=== PATIENT | female | born 1940 | race Caucasian/White ===

== ENCOUNTER 2016-04-23 09:27 | Emergency (ER) | payer MEDICARE, OTHER ==
--- NOTE | 2016-04-23 09:58 | RAD ---
HISTORY: Chest pain COMPARISONS: May 23, 2015, CT of the chest dated February 15, 2016 VIEWS:1: Single frontal portable view of the chest at 9:45 AM FINDINGS: LINES AND TUBES: None. CARDIOMEDIASTINAL SILHOUETTE: Again noted is an ectatic and tortuous thoracic aorta. This corresponds to the known thoracic aortic aneurysm and dissection described on the previous CT of the chest. This is stable from previous examinations. PLEURA: The costophrenic angles are sharp. No pleural abnormalities are noted. LUNG PARENCHYMA: The lungs are clear. ABDOMEN: The upper abdomen is clear. There is no subphrenic gas. BONES AND SOFT TISSUES: There is advanced osteoarthritis of the shoulders. The patient is status post median sternotomy. IMPRESSION: AGAIN NOTED IS AN ECTATIC AND TORTUOUS THORACIC AORTA CORRESPONDING TO THE KNOWN ANEURYSMAL DILATATION OR DISSECTION FLAP. ACCOUNTING FOR DIFFERENCE IN TECHNIQUE, THIS IS STABLE FROM FEBRUARY 15, 2016
[2016-04-23 10:02] LABS: Hematocrit 32 % (35-47); Hemoglobin 10.6 g/dl (12.0-16.0); Mean Corpuscular HGB Conc 33 g/dl (31-36); Mean Corpuscular Hemoglobin 28 pg (27-31); Mean Corpuscular Volume 86 fL (80-97); Mean Platelet Volume 7 um3 (7.4-10.4); Red Blood Count 3.73 10^6/ul (4.0-5.4); Red Cell Distribution Width 14 % (10.5-15); White Blood Count 3.6 10^3/ul (3.5-10.8)
[2016-04-23 10:21] LABS: Albumin 3.7 g/dL (3.2-5.2); BUN/Creatinine Ratio 36.7 (8-20); Calcium 8.7 mg/dL (8.6-10.3); EGFR African American 91.2 (>60); EGFR Non-African American 70.9 (>60); Globulin 2.3 g/dL (2-4); Magnesium 1.8 mg/dL (1.9-2.7); Potassium 4.4 mmol/L (3.5-5.0); Total Bilirubin 0.4 mg/dL (0.2-1.0)
[2016-04-23 10:23] LABS: Troponin I 0.01 ng/mL (<0.04)
[2016-04-23] MEDS ORDERED: Lidocaine 2% VISCOUS* 15 ML UDC PO ONE (10:29)
[2016-04-23] MEDS ORDERED: Al Hydrox/Mg Hydrox/Simet LIQ* 30 ML UDC PO ONE (10:29)
--- NOTE | 2016-04-23 10:53 | ED ---
Hannah Gamboa Claudia, scribed for Mary Dover MD on 04/23/16 at 1016 . HPI Chest Pain - HPI Summary HPI Summary: 76 year old female presents to the ED with epigastric pain. Pt describes the pain is burning and it feels like extreme heart burn. Pt notes pain started at 600am today. She notes that she has had GERD like this in the past. Pt notes that she took Mylanta this am which somewhat alleviated her pain. She admits to nausea but denies V/D, SOB, skin diaphoresis, vision changes. No radiation of pain. + belching. no blood, black stool. No h/o cardiac dx, CVA Pt does have aortic aneurysm (SHx aneurysm repair 2016) and takes Rx Plavix daily. - History of Current Complaint Chief Complaint: EDChestPainROMI Time Seen by Provider: 04/23/16 09:31 Hx Obtained From: Patient Onset/Duration: Started Hours Ago - 0600am today, Still Present Timing: Constant Initial Severity: Moderate Current Severity: Mild Pain Intensity: 6 Pain Scale Used: 0-10 Numeric Chest Pain Location: Mid Sternal - epigastric Chest Pain Radiates: Yes Chest Pain Radiates To:: Epigastric, Other - esophageous Character: Burning Aggravating Factor(s): Medications - Maalox Alleviating Factor(s): OTC Meds - mylanta Associated Signs and Symptoms: Positive: Chest Pain, Nausea. Negative: Vision Changes, Shortness of Breath, Diaphoresis, Vomiting - Allergy/Home Medications Allergies/Adverse Reactions: Allergies Allergy/AdvReac Type Severity Reaction Status Date / Time Iodinated Contrast Media Allergy Mild Hives Verified 04/23/16 09:39 [CONTRAST DYE] Amiodarone Allergy Unknown Verified 04/23/16 09:39 Reaction Details Darifenacin Allergy Unknown Verified 04/23/16 09:39 [From Enablex 15mg] Reaction Details Penicillins [PCN] Allergy Hives Verified 04/23/16 09:39 Yellow Dye Allergy Unknown Verified 04/23/16 09:39 [From Enablex 15mg] Reaction Details PMH/Surg Hx/FS Hx/Imm Hx Previously Healthy: Yes Endocrine/Hematology History: Reports: Hx Thyroid Disease Denies: Hx Diabetes Cardiovascular History: Reports: Hx Coronary Artery Disease, Hx Hypertension, Other Cardiovascular Problems/Disorders - aortic aneurysm Denies: Hx Myocardial Infarction GI History: Reports: Hx Gastroesophageal Reflux Disease History: Denies: Hx Dialysis, Hx Renal Disease Musculoskeletal History: Reports: Hx Arthritis - shoulders bilaterally, Hx Orthopedic Injury - fx r hip, hip replacement done, Hx Osteoporosis Denies: Hx Rheumatoid Arthritis Sensory History: Reports: Hx Contacts or Glasses - glasses Opthamlomology History: Reports: Hx Contacts or Glasses - glasses Neurological History: Reports: Other Neuro Impairments/Disorders - parkinsons Denies: Hx CVA Psychiatric History: Reports: Hx Eating Disorder - anorexia, Hx Depression - Cancer History Cancer Type, Location and Year: breast Hx Chemotherapy: No Hx Radiation Therapy: No Hx Palliative Cancer Treatment: No - Surgical History Surgery Procedure, Year, and Place: bilateral mastectomy- 1978, 1989. aortic aneurysm repair Hx Anesthesia Reactions: No Infectious Disease History: No Infectious Disease History: Denies: Traveled Outside the [place] in Last 30 Days - Family History Known Family History: Positive: None - reviewed & noncontributory - Social History Occupation: Retired Alcohol Use: None Hx Substance Use: No Substance Use Type: Reports: None Hx Tobacco Use: No Smoking Status (MU): Former Smoker Type: Cigarettes Amount Used/How Often: 1ppd Length of Time of Smoking/Using Tobacco: 3 years from [id number] Have You Smoked in the Last Year: No Review of Systems Constitutional: Negative Negative: Fever, Chills, Skin Diaphoresis Eyes: Negative Negative: Blurred Vision, Diplopia ENT: Negative Positive: Chest Pain - epigastic burning Negative: Shortness Of Breath, Cough Positive: Nausea. Negative: Vomiting, Diarrhea Genitourinary: Negative Musculoskeletal: Negative Skin: Negative Neurological: Negative Negative: Weakness Psychological: Normal All Other Systems Reviewed And Are Negative: Yes Physical Exam Triage Information Reviewed: Yes Vital Signs On Initial Exam: Initial Vitals Temp Pulse Resp BP Pulse Ox 98.9 F 56 12 150/64 99 04/23/16 09:34 04/23/16 09:34 04/23/16 09:34 04/23/16 09:34 04/23/16 09:34 Vital Signs Reviewed: Yes Appearance: Positive: Well-Appearing, No Pain Distress, Well-Nourished Skin: Positive: Warm, Skin Color Reflects Adequate Perfusion, Dry Head/Face: Positive: Normal Head/Face Inspection, Other - Pt with lip movement related to Parkinson's Eyes: Positive: Normal, EOMI, JUDSON ENT: Positive: TMs normal Neck: Positive: Supple, Nontender, No Lymphadenopathy Respiratory/Lung Sounds: Positive: Clear to Auscultation, Breath Sounds Present Cardiovascular: Positive: Normal, RRR. Negative: Murmur Abdomen Description: Positive: Soft. Negative: Nontender - + ttp epigatric area - worse with deep palp. No guarding, no rebound Bowel Sounds: Positive: Present Musculoskeletal: Positive: Normal, Strength/ROM Intact Neurological: Positive: Normal, Sensory/Motor Intact, Alert, Oriented to Person Place, Time Psychiatric: Positive: Normal AVPU Assessment: Alert - [place] Coma Scale Best Eye Response: 4 - Spontaneous Best Motor Response: 6 - Obeys Commands Best Verbal Response: 5 - Oriented Coma Scale Total: 15 Diagnostics - Vital Signs Vital Signs Temp Pulse Resp BP Pulse Ox 04/23/16 09:34 98.9 F 56 12 150/64 99 - Laboratory Lab Results: Lab Results 04/23/16 Range/Units 09:53 WBC 3.6 (3.5-10.8) 10^3/ul RBC 3.73 L (4.0-5.4) 10^6/ul Hgb 10.6 L (12.0-16.0) g/dl Hct 32 L (35-47) % MCV 86 (80-97) fL MCH 28 (27-31) pg MCHC 33 (31-36) g/dl RDW 14 (10.5-15) % Plt Count 149 L (150-450) 10^3/ul MPV 7 L (7.4-10.4) um3 Neut % (Auto) 73.5 (38-83) % Lymph % (Auto) 15.7 L (25-47) % Dickenson % (Auto) 8.8 (1-9) % Eos % (Auto) 0.8 (0-6) % Baso % (Auto) 1.2 (0-2) % Absolute Neuts (auto) 2.7 (1.5-7.7) 10^3/ul Absolute Lymphs (auto) 0.6 L (1.0-4.8) 10^3/ul Absolute Monos (auto) 0.3 (0-0.8) 10^3/ul Absolute Eos (auto) 0 (0-0.6) 10^3/ul Absolute Basos (auto) 0 (0-0.2) 10^3/ul Absolute Nucleated RBC 0 10^3/ul Nucleated RBC % 0 Result Diagrams: 04/23/16 09:53 04/23/16 09:53 Lab Statement: Any lab studies that have been ordered have been reviewed, and results considered in the medical decision making process. - Radiology CXR Xray Interpretation: No Acute Changes - AGAIN NOTED IS AN ECTATIC AND TORTUOUS THORACIS AORTA CORRESPONDING TO THE KNOWN ANEURYSMAL DIALATION OR DISSECTION FLAP. ACOCUDNTING FOR DIFFERNECE IN TECHNIQUE, THIS IS STABLE FROM FEBRUARY 15, 2016. Radiology Interpretation Completed By: Radiologist - EKG 9:33 Cardiac Rate: NL EKG Rhythm: Sinus Rhythm - 55 beats/min EKG Interpretation: RBBB, no acute changes from 05/22/15. Re-Evaluation - Re-Evaluation 1 Re-Evaluation Time: 11:08 Change: Improved - Pt notes Sx are completly resolved and pt is feeling imporved after the GI cocktail. Pt is ready to try some applesauce. 2 Re-Evaluation Time: 11:29 Comment: Pt is updated on the results of the urine anaylsis. Will start marcrobid Pt states feels well, no pain, no complaints Chest Pain Course/Dx - Course Assessment/Plan: Pt presents with epigastric burning - started at 6am, improved with mylanta. Pt reports mild nausea, no vomiting. No h/o CAD. Pt with known AAA. will check EKG, labs, urine, cxr. Will give Gi cocktail, reassess - Diagnoses Provider Diagnoses: UTI (urinary tract infection), Epigastric abdominal pain Discharge - Discharge Plan Condition: Improved Disposition: HOME Prescriptions: Nitrofurantoin Monohyd Macro [Macrobid] 100 mg PO BID #20 cap Referrals: Patricia Harris MD [Primary Care Provider] - Additional Instructions: - stay well hydrated Drink plenty of non-alcoholic,noncaffinated beverages - Take antibiotics (macrobid 100mg 2 times a day for 10 days) for your urinary infection - It is recommend you discuss starting an acid reducing medication with your doctor. Okay to take Maalox of Mylanta for discomfort -contact your doctor to schedule a follow-up appointment. Contact your doctor or return with questions or concerns The documentation as recorded by the Hannah leon Claudia accurately reflects the service I personally performed and the decisions made by me, Mary Dover MD.
[2016-04-23 11:25] LABS: Urine Bacteria 2+ (Absent); Urine Bilirubin Negative (Negative); Urine Glucose Negative (Negative); Urine Nitrite Positive (Negative)
[2016-04-23] MEDS ORDERED: Nitrofurantoin Macrocrystals* 100 MG CAP PO ONE (11:29)
[2016-04-23 12:23] VITALS: BP 143/70
--- NOTE | 2016-04-25 07:58 | ED ---
Progress - Progress Note Progress Note: Patient's urine culture grew E. Coli. She was put on Nitrofurantoin on 04/23/16. Sensitivity came back and bacteria is sensitive to Nitrofurantoin. No medication changes needed at this time unless returns with worsening symptoms. Re-Evaluation - Re-Evaluation 1 Re-Evaluation Time: 11:08 Change: Improved - Pt notes Sx are completly resolved and pt is feeling imporved after the GI cocktail. Pt is ready to try some applesauce. 2 Re-Evaluation Time: 11:29 Comment: Pt is updated on the results of the urine anaylsis. Will start marcrobid Pt states feels well, no pain, no complaints Course/Dx - Diagnoses Provider Diagnoses: UTI (urinary tract infection), Epigastric abdominal pain
== END 2016-04-23 12:33 | disposition home or self-care (01) ==
LOC: ED 09:27
DX: N39.0 Urinary tract infection, site not specified (principal); R10.13 Epigastric pain; R07.9 Chest pain, unspecified; R11.0 Nausea
CPT/HCPCS: 36415; 71010; 80053; 81003; 81015; 82550; 82553; 83690; 83735; 84484; 85025; 87077; 87086; 87186; 93005; 99284; A9270-GY

== ENCOUNTER 2016-06-05 08:09 | Emergency (ER) | payer MEDICARE, OTHER ==
--- NOTE | 2016-06-05 09:13 | RAD ---
INDICATION: History of aortic aneurysm/dissection with repair COMPARISON: Chest x-ray April 23, 2016; CT chest February 15, 2016 TECHNIQUE: PA and lateral dual-energy views were obtained. FINDINGS: Bones/Soft Tissues: There are no acute bony findings. There are postsurgical changes with sternotomy. There is thoracic aortic surgery. There are clips in right axillary region. There is advanced osteoarthritis about both shoulders Cardiomediastinal: The abnormal cardiac silhouette appears unchanged when allowing for rotation on the current examination. There are displaced intimal calcifications with prominence of the arch and descending thoracic aorta consistent with the clinical history. Lungs: There are no infiltrates. Pleura: There are no pleural effusions. Other: None IMPRESSION: NO CHANGE IN THE ABNORMAL APPEARANCE THE CARDIAC SILHOUETTE. POSTSURGICAL CHANGES.
--- NOTE | 2016-06-05 09:33 | ED ---
Shortness of Breath - HPI Summary HPI Summary: Patient presents with SOB and mild nausea that began this AM when she went to the bathroom. She does not relate this to any activity. Nothing makes it better or worse. She has had this feeling in the past, which was related to "having to wait". She has been feeling generally weak without CP, CHAVARRIA, fever, abdominal pain or recent illness. She has a history of not sleeping well and her appetite is intact. - History of Current Complaint Chief Complaint: EDGeneral Time Seen by Provider: 06/05/16 08:24 Hx Obtained From: Patient Onset/Duration: Sudden Onset Current Severity: None Dyspnea At: Rest Aggrevating Factors: Nothing Alleviating Factors: Spontaneous Resolution Associated Signs & Symptoms: Negative - Allergy/Home Medications Allergies/Adverse Reactions: Allergies Allergy/AdvReac Type Severity Reaction Status Date / Time Iodinated Contrast Media Allergy Mild Hives Verified 04/23/16 09:39 [CONTRAST DYE] Amiodarone Allergy Unknown Verified 04/23/16 09:39 Reaction Details Darifenacin Allergy Unknown Verified 04/23/16 09:39 [From Enablex 15mg] Reaction Details Penicillins [PCN] Allergy Hives Verified 04/23/16 09:39 Yellow Dye Allergy Unknown Verified 04/23/16 09:39 [From Enablex 15mg] Reaction Details PMH/Surg Hx/FS Hx/Imm Hx Endocrine/Hematology History: Reports: Hx Thyroid Disease Denies: Hx Diabetes Cardiovascular History: Reports: Hx Coronary Artery Disease, Hx Hypertension, Other Cardiovascular Problems/Disorders - aortic aneurysm Denies: Hx Myocardial Infarction GI History: Reports: Hx Gastroesophageal Reflux Disease History: Denies: Hx Dialysis, Hx Renal Disease Musculoskeletal History: Reports: Hx Arthritis - shoulders bilaterally, Hx Orthopedic Injury - fx r hip, hip replacement done, Hx Osteoporosis Denies: Hx Rheumatoid Arthritis Sensory History: Reports: Hx Contacts or Glasses - glasses Opthamlomology History: Reports: Hx Contacts or Glasses - glasses Neurological History: Reports: Other Neuro Impairments/Disorders - parkinsons Denies: Hx CVA Psychiatric History: Reports: Hx Eating Disorder - anorexia, Hx Depression - Cancer History Cancer Type, Location and Year: breast Hx Chemotherapy: No Hx Radiation Therapy: No Hx Palliative Cancer Treatment: No - Surgical History Surgery Procedure, Year, and Place: bilateral mastectomy- 1978, 1989. aortic aneurysm repair Hx Anesthesia Reactions: No Infectious Disease History: No Infectious Disease History: Denies: Traveled Outside the [place] in Last 30 Days - Family History Known Family History: Positive: None - reviewed & noncontributory - Social History Occupation: Retired Alcohol Use: None Hx Substance Use: No Substance Use Type: Reports: None Hx Tobacco Use: No Smoking Status (MU): Former Smoker Type: Cigarettes Amount Used/How Often: 1ppd Length of Time of Smoking/Using Tobacco: 3 years from [id number] Have You Smoked in the Last Year: No Review of Systems Positive: Fatigue. Negative: Fever, Chills Positive: Shortness Of Breath. Negative: Cough Positive: Nausea. Negative: Abdominal Pain, Vomiting, Diarrhea Positive: no symptoms reported Negative: Headache All Other Systems Reviewed And Are Negative: Yes Physical Exam Triage Information Reviewed: Yes Vital Signs On Initial Exam: Initial Vitals Temp Pulse Resp BP Pulse Ox 98.4 F 58 20 179/81 100 06/05/16 08:17 06/05/16 08:17 06/05/16 08:17 06/05/16 08:17 06/05/16 08:17 Vital Signs Reviewed: Yes Appearance: Positive: Well-Appearing, No Pain Distress, Cachectic Skin: Positive: Warm, Skin Color Reflects Adequate Perfusion, Dry, Soft Head/Face: Positive: Normal Head/Face Inspection Eyes: Positive: EOMI, JUDSON, Conjunctiva Clear ENT: Positive: Hearing grossly normal Neck: Positive: Supple, Nontender, No Lymphadenopathy Respiratory/Lung Sounds: Positive: Clear to Auscultation, Breath Sounds Present Cardiovascular: Positive: Bradycardia Abdomen Description: Positive: Nontender, Soft Bowel Sounds: Positive: Present Musculoskeletal: Negative: Edema Left, Edema Right Neurological: Positive: Sensory/Motor Intact, Alert, Oriented to Person Place, Time, NV Bundle Intact Distally Psychiatric: Positive: Affect/Mood Appropriate AVPU Assessment: Alert - Yue Coma Scale Coma Scale Total: 15 Diagnostics - Vital Signs Vital Signs Temp Pulse Resp BP Pulse Ox 06/05/16 08:17 98.4 F 58 20 179/81 100 - Laboratory Result Diagrams: 06/05/16 09:39 06/05/16 09:39 Lab Statement: Any lab studies that have been ordered have been reviewed, and results considered in the medical decision making process. - Radiology No standard instances Xray Interpretation: No Acute Changes Radiology Interpretation Completed By: Radiologist - EKG No standard instances Cardiac Rate: NL EKG Rhythm: Sinus Rhythm ST Segment: Normal Ectopy: None EKG Comparison: No Significant Change Course/Dx - Course Course Of Treatment: Patient's labwork was negative for acute changes. She is encouraged to drink extra fluids to avoid dehydration and to follow-up with her PCP for evaluation. - Diagnoses Differential Diagnosis/HQI/PQRI: Positive: Airway Obstruction, Bronchitis, CHF, Chest Wall Pain, NH, Pneumonia, Pneumothorax, Pulmonary Embolism Provider Diagnoses: Shortness of breath - Physician Notifications Discussed Care of Patient With: Dr. Moser, ED attending Time Discussed With Above Provider: 20:00 Discharge - Discharge Plan Condition: Stable Disposition: HOME Patient Education Materials: Dehydration (ED), Dyspnea (ED) Referrals: Patricia Harris MD [Primary Care Provider] - Additional Instructions: Please make an effort to drink extra fluids to avoid dehydration. Follow-up with your primary care provider in 2-3 days for re-evaluation.
[2016-06-05 09:52] LABS: Hematocrit 33 % (35-47); Hemoglobin 10.7 g/dl (12.0-16.0); Mean Corpuscular HGB Conc 32 g/dl (31-36); Mean Corpuscular Hemoglobin 28 pg (27-31); Mean Corpuscular Volume 85 fL (80-97); Mean Platelet Volume 7 um3 (7.4-10.4); Red Blood Count 3.86 10^6/ul (4.0-5.4); Red Cell Distribution Width 15 % (10.5-15); White Blood Count 6.1 10^3/ul (3.5-10.8)
[2016-06-05 10:10] LABS: Albumin 3.8 g/dL (3.2-5.2); BUN/Creatinine Ratio 36.1 (8-20); Calcium 9.2 mg/dL (8.6-10.3); EGFR Non-African American 95.6 (>60); Globulin 2.5 g/dL (2-4); Potassium 3.9 mmol/L (3.5-5.0); Total Bilirubin 0.6 mg/dL (0.2-1.0); Total Protein 6.3 g/dL (6.4-8.9)
[2016-06-05 11:28] LABS: Urine Bilirubin Negative (Negative); Urine Glucose Negative (Negative); Urine Nitrite Negative (Negative)
[2016-06-05 12:13] VITALS: BP 134/84
== END 2016-06-05 10:45 | disposition home or self-care (01) ==
LOC: ED 08:09
DX: R06.02 Shortness of breath (principal); Z87.891 Personal history of nicotine dependence; R53.83 Other fatigue; R11.0 Nausea
CPT/HCPCS: 36415; 71020; 80053; 81003; 83605; 84484; 85025; 93005; 99283

== ENCOUNTER 2016-09-13 11:58 | Emergency (ER) | payer MEDICARE, OTHER ==
[2016-09-13] MEDS ORDERED: Aspirin Low Dose CHEW TAB* 81 MG PO ONE (13:00)
[2016-09-13] MEDS ORDERED: oxyCODONE/Acetamin 5/325 MG* TAB PO ONE (14:03)
[2016-09-13] MEDS ORDERED: fentaNYL PATCH 12 MCG/HR TRANSDERM ONE (14:32)
[2016-09-13 16:12] VITALS: BP 143/77
--- NOTE | 2016-09-13 18:08 | ED ---
Hannah Gamboa Claudia, scribed for Delano Park MD on 09/13/16 at 1300 . Complex/Multi-Sys Presentation - HPI Summary HPI Summary: 76 year old [place] [facility] [place] with c/c of CP. Pt was d/c yesterday from [facility]. Pt was admitted to [facility] on 09/01/16 for Thoracic Aortic Dissection. Pt underwent a transfemoral thoracic endo graft dr Dr. Ely. After surgery pt complaint of left left weakness/numbness with difficulty moving her left leg. Pt was then taken emergently to the OR for a left axillary byfemoral bypass per Dr. Little. Pt then went into Atrial Flutter and was electrically cardioverted.S he was d/c yesterday tp Located Within [facility]. Pt has bilaterally groin incisions as well as an incision to her right upper chest. She notes CP around the surgical incision as well as left leg pain/weakness. Pt is also experiencing bilateral LE edema. Pt is unable to document fully due to AMS. - History Of Current Complaint Chief Complaint: EDChestWallPain Time Seen by Provider: 09/13/16 12:22 Hx Obtained From: Patient, Medical Records Hx From Patient Unobtainable Due To: Altered Mental Status Onset/Duration: Sudden Onset, Lasting Hours, Still Present Associated Signs And Symptoms: Positive: Chest Pain, Edema - Allergies/Home Medications Allergies/Adverse Reactions: Allergies Allergy/AdvReac Type Severity Reaction Status Date / Time Iodinated Contrast Media Allergy Mild Hives Verified 07/13/16 13:21 [CONTRAST DYE] Amiodarone Allergy Unknown Verified 07/13/16 13:21 Reaction Details Darifenacin Allergy Unknown Verified 07/13/16 13:21 [From Enablex 15mg] Reaction Details Penicillins [PCN] Allergy Hives Verified 07/13/16 13:21 Yellow Dye Allergy Unknown Verified 07/13/16 13:21 [From Enablex 15mg] Reaction Details Home Medications: Home Medications Acetaminophen TAB* [Tylenol TAB*] 650 mg PO DAILY 09/13/16 [History Confirmed ] Acetaminophen [Acetaminophen Extra Stren] 500 mg PO Q4HR PRN 09/13/16 [History Confirmed 09/13/16] Alum & Mag Hydrox-Simethicone [Mylanta] 30 ml PO BID PRN 09/13/16 [History Confirmed 09/13/16] Ascorbic Acid TAB* [Vitamin C TAB*] 500 mg PO DAILY 09/13/16 [History Confirmed 09/13/16] Atorvastatin* [Lipitor 40 MG*] 40 mg PO DAILY 09/13/16 [History Confirmed ] DULoxetine DR CAP* [Cymbalta CAP*] 30 mg PO DAILY 09/13/16 [History Confirmed ] Dronabinol CAP* [Marinol CAP*] 2.5 mg PO BID 09/13/16 [History Confirmed ] Esomeprazole(NF) [NexIUM(NF)] 40 mg PO DAILY 09/13/16 [History Confirmed ] Flecainide TAB* [Tambocor TAB*] 50 mg PO BID 09/13/16 [History Confirmed ] Ketoconazole 2 % CREAM (NF) [Nizoral 2% CREAM (NF)] 1 applic TOPICAL BID PRN 02/18 [History Confirmed 09/13/16] Loperamide CAP* [Imodium CAP*] 2 mg PO Q6HR PRN 09/13/16 [History Confirmed 02/18] Melatonin (NF) [Meladox] 3 mg PO BEDTIME 09/13/16 [History Confirmed 09/13/16] Metoprolol Tartrate TAB* [Lopressor TAB*] 50 mg PO BID 09/13/16 [History Confirmed 09/13/16] Mirtazapine TAB* [Remeron TAB*] 7.5 mg PO BEDTIME 09/13/16 [History Confirmed ] Nystatin TOP POWDER* 1 applic TOPICAL BID PRN 09/13/16 [History Confirmed ] Ondansetron TAB* [Zofran 4 MG Tab*] 4 mg PO DAILY PRN 09/13/16 [History Confirmed 09/13/16] Polyethylene Glycol 3350* [Miralax*] 17 gm PO DAILY PRN 09/13/16 [History Confirmed 09/13/16] Polyethylene Glycol-Propylene [Systane Ultra 0.4-0.3 %] 1 drop BOTH EYES Q2HR PRN 09/13/16 [History Confirmed 09/13/16] Ranitidine TAB (NF) [Zantac TAB (NF)] 150 mg PO DAILY 09/13/16 [History Confirmed 09/13/16] Simethicone [Gas-X] 80 mg PO QID PRN 09/13/16 [History Confirmed 09/13/16] Zolpidem TAB* [Ambien TAB*] 5 mg PO BEDTIME PRN 09/13/16 [History Confirmed 02/18] diPHENhydraMINE PO* [Benadryl PO 25 MG TAB*] 25 mg PO BEDTIME 09/13/16 [History Confirmed 09/13/16] diPHENhydraMINE PO* [Benadryl PO 25 MG TAB*] 25 mg PO BEDTIME PRN MDD 50 mg 02/18 [History Confirmed 09/13/16] oxyCODONE/Acetamin 5/325 MG* [Percocet 5/325 TAB*] 1 tab PO 1900 MDD 4 tablets 09/13/16 [History Confirmed 09/13/16] oxyCODONE/Acetamin 5/325 MG* [Percocet 5/325 TAB*] 1 tab PO Q6H PRN MDD 4 tabs 09/13/16 [History Confirmed 09/13/16] PMH/Surg Hx/FS Hx/Imm Hx Previously Healthy: Yes Endocrine/Hematology History: Reports: Hx Thyroid Disease Denies: Hx Diabetes Cardiovascular History: Reports: Hx Coronary Artery Disease, Hx Hypertension, Other Cardiovascular Problems/Disorders - aortic aneurysm Denies: Hx Myocardial Infarction GI History: Reports: Hx Gastroesophageal Reflux Disease History: Denies: Hx Dialysis, Hx Renal Disease Musculoskeletal History: Reports: Hx Arthritis - shoulders bilaterally, Hx Orthopedic Injury - fx r hip, hip replacement done, Hx Osteoporosis Denies: Hx Rheumatoid Arthritis Sensory History: Reports: Hx Contacts or Glasses - glasses Opthamlomology History: Reports: Hx Contacts or Glasses - glasses Neurological History: Reports: Other Neuro Impairments/Disorders - parkinsons Denies: Hx CVA Psychiatric History: Reports: Hx Eating Disorder - anorexia, Hx Depression - Cancer History Cancer Type, Location and Year: breast Hx Chemotherapy: No Hx Radiation Therapy: No Hx Palliative Cancer Treatment: No - Surgical History Surgery Procedure, Year, and Place: bilateral mastectomy- 1978, 1989. aortic aneurysm repair Hx Anesthesia Reactions: No Infectious Disease History: Denies: Traveled Outside the [place] in Last 30 Days - Family History Known Family History: Positive: None - reviewed & noncontributory - Social History Alcohol Use: None Hx Substance Use: No Substance Use Type: Reports: None Hx Tobacco Use: No Smoking Status (MU): Former Smoker Type: Cigarettes Amount Used/How Often: 1ppd Length of Time of Smoking/Using Tobacco: 3 years from [id number] Have You Smoked in the Last Year: No Review of Systems - ROS Summary Review of Systems Summary: level 5 caveat- AMS Positive: Chest Pain - over the surgical site Positive: Edema - bilateral LE edema , Other - left leg pain/weakness All Other Systems Reviewed And Are Negative: No Physical Exam - Summary Physical Exam Summary: VITAL SIGNS: Reviewed. GENERAL: Patient is confused. HEAD AND FACE: No signs of trauma. No ecchymosis, hematomas or skull depressions. No sinus tenderness. EYES: PERRLA, EOMI x 2, No injected conjunctiva, no nystagmus. EARS: Hearing grossly intact. Ear canals and tympanic membranes are within normal limits. MOUTH: Oropharynx within normal limits. NECK: Supple, trachea is midline, no adenopathy, no JVD, no carotid bruit, no c- spine tenderness, neck with full ROM. CHEST: Symmetric, no tenderness at palpation LUNGS: Clear to auscultation bilaterally. No wheezing or crackles. CVS: Regular rate and rhythm, S1 and S2 present, no murmurs or gallops appreciated. Pt has good distal pulses in her LE bilaterally. ABDOMEN: Soft, non-tender. No signs of distention. No rebound no guarding, and no masses palpated. Bowel sounds are normal. EXTREMITIES: FROM in all major joints, no edema, no cyanosis or clubbing. NEURO: Alert and oriented x 3. No acute neurological deficits. Speech is normal and follows commands. SKIN: Dry and warm. Pt has 3 surgical incisions- upper chest and groin bilaterally. Triage Information Reviewed: Yes Vital Signs On Initial Exam: Initial Vitals Pulse Pulse Ox 54 97 09/13/16 12:21 09/13/16 12:21 Vital Signs Reviewed: Yes Diagnostics - Vital Signs Vital Signs Temp Pulse Resp BP Pulse Ox 09/13/16 16:08 97.6 F 66 16 143/77 09/13/16 16:00 64 20 160/90 97 09/13/16 15:00 53 19 143/77 97 09/13/16 14:52 16 09/13/16 14:35 16 09/13/16 14:00 67 15 143/85 98 09/13/16 13:00 55 15 139/72 100 09/13/16 12:38 97.4 F 57 14 139/72 98 09/13/16 12:34 19 139/64 09/13/16 12:21 54 97 - Laboratory Lab Statement: Any lab studies that have been ordered have been reviewed, and results considered in the medical decision making process. Re-Evaluation - Re-Evaluation 1 Re-Evaluation Time: 14:15 Comment: THE PT HAS DECIDED WITH COMFORT CARE AND DOES NOT WANT ANY FURTHER CARE OR TRANSPORT TO HOSPITAL FOR SPECIAL CARE. THE PT FAMILY IS CONSULTED. Complex Multi-Symp Course/Dx Assessment/Plan: 71 year old female who presented to the ED [facility] episode of CP. Pt is alert nd oriented x3 the pt states she has had multiple surgeries in the past 14 days. 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 The pt pain is located where the surgical incisions are in the chest and the inguinal area. She does not want any type of testing, no US, no blood work, no CXR she wants to be given pain Rx and given comfort care. The nurse and I had long discussion about comfort care with the pt and she is aware and would like comfort care with no testing . She was given percocet, and given fentanyl patch and signed AMA. We discussed the care with her daughter and her sister and they both agree that the pt should be in comfort care and agrees with the pt wishes . Therefore the [facility]. Pt is hemodynamically stable and alert and oriented x3. I extensively discussed with the patient the benefits and risk of leaving AMA. I also discussed the alternatives to leaving AMA, however, the patient still insist to leave the hospital AMA.. The primary nurse and the charge nurse also strongly recommended that the patient should not leave AMA. Patient understands the risk of leaving AMA, which includes but is not restricted to . Patient is Alert and oriented times three and patient verbalizes understanding. Patient has full capacity and is cognitively intact. Patient signed the AMA form. Patient was also advised to return to ED if he changes his mind or if the symptoms worsen or other symptoms appear. Patient understands and agrees. - Diagnoses Provider Diagnoses: Chest pain, Leg pain, Left against medical advice, Need for comfort care Discharge - Discharge Plan Condition: Stable Disposition: AGAINST MEDICAL ADVICE Patient Education Materials: Chest Pain (ED), Leg Pain (ED), Against Medical Advice (ED) Referrals: Patricia Harris MD [Primary Care Provider] - The documentation as recorded by the Hannah leon Claudia accurately reflects the service I personally performed and the decisions made by Xavier weaver Walter, MD.
== END 2016-09-13 16:08 | disposition left against medical advice (07) ==
LOC: ED 11:58
DX: R07.9 Chest pain, unspecified (principal); M79.606 Pain in leg, unspecified; Z87.891 Personal history of nicotine dependence; Z53.21 Procedure and treatment not carried out due to patient leaving prior to being seen by health care provider
CPT/HCPCS: 99283; A9270-GY